=== PATIENT | female | born 1975 | race Caucasian/White ===

== ENCOUNTER 2017-06-27 16:44 | Emergency (ER) | payer OTHER ==
[~2017-06-27] VITALS: Ht 154.9 cm; Wt 48.0 kg
[~2017-06-27 16:44] MED LIST: DOXY150C OR; DOXY50 OR
[2017-06-27 16:49] VITALS: BP 142/81; PULSE 84; RESP 16; TEMP 99.1; O2SAT 99
[2017-06-27] MEDS ORDERED: IBUPROFEN 600 MG TAB PO ONE (17:45)
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
[2017-06-27] MEDS ORDERED: IBUP-232 PO (19:25)
[2017-06-27] MEDS ORDERED: ROBA750T PO (19:25)
== END 2017-06-27 19:30 | disposition home or self-care (01) ==
LOC: PHED 16:44 → PHEFT 19:30
DX: S16.1XXA Strain of muscle, fascia and tendon at neck level, initial encounter (principal); S39.012A Strain of muscle, fascia and tendon of lower back, initial encounter; S29.012A Strain of muscle and tendon of back wall of thorax, initial encounter; M79.601 Pain in right arm; V43.52XA Car driver injured in collision with other type car in traffic accident, initial encounter
CPT/HCPCS: 72072; 72100; 72125; 99284; L0150

== ENCOUNTER 2017-12-08 20:35 | Emergency (ER) | payer SELFPAY ==
[~2017-12-08 20:35] MED LIST changes: +IBUP-232 PO; +ROBA750T PO
[2017-12-08 20:45] VITALS: BP 137/77; PULSE 106; RESP 20; TEMP 99.3; O2SAT 97
[2017-12-08 23:35] VITALS: BP 118/77; PULSE 97; RESP 18; O2SAT 99
[2017-12-09] MEDS ORDERED: SODIUM CHLORIDE 0.9% FLUSH 10 ML FLUSH IV FLUSH PRN (01:00)
[2017-12-09] MEDS ORDERED: SODIUM CHLOR 0.9% 1000 ML INJ 1,000 ML IV ONE (01:00)
[2017-12-09] MEDS ORDERED: IBUPROFEN 400 MG TAB PO ONE (01:00)
[2017-12-09] MEDS ORDERED: ACETAMINOPHEN 500 MG CPLT PO ONE (01:00)
[2017-12-09 01:21] LABS: AUTOMATED NEUTROPHIL # 3.3 TH/MM3 (1.8-7.7); BASOPHIL % 0.3 % (0.0-2.0); EOSINOPHIL % 0.1 % (0.0-4.0); HEMATOCRIT 41.3 % (35.0-46.0); HEMOGLOBIN 13.5 GM/DL (11.6-15.3); LYMPH % 15.8 % (9.0-44.0); LYMPHOCYTE # 0.7 TH/MM3 (1.0-4.8); MEAN CELL VOLUME 92.2 FL (80.0-100.0); MEAN CORPUSCULAR HEMOGLOBIN 30.1 PG (27.0-34.0); MEAN CORPUSCULAR HGB CONC 32.7 % (32.0-36.0); MEAN PLATELET VOLUME 8.1 FL (7.0-11.0); MONO % 12.6 % (0.0-8.0); MONOCYTE # 0.6 TH/MM3 (0-0.9); NEUT % 71.2 % (16.0-70.0); PLATELET COUNT 244 TH/MM3 (150-450); RED BLOOD COUNT 4.48 MIL/MM3 (4.00-5.30); RED CELL DISTRIBUTION WIDTH 12.2 % (11.6-17.2); WHITE BLOOD COUNT 4.6 TH/MM3 (4.0-11.0)
[2017-12-09] MEDS ORDERED: ONDANSETRON HCL 4 MG/2 ML VIAL IV PUSH ONE (01:30)
[2017-12-09 01:33] VITALS: BP 115/74; PULSE 93; RESP 18; TEMP 98.9; O2SAT 99
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
[2017-12-09 01:39] LABS: CHLORIDE 104 MEQ/L (98-107); SODIUM (NA) 136 MEQ/L (136-145)
[2017-12-09 01:42] LABS: CALCIUM 8.4 MG/DL (8.5-10.1)
[2017-12-09 01:43] LABS: BICARBONATE 24.4 MEQ/L (21.0-32.0); BLOOD UREA NITROGEN 13 MG/DL (7-18); GLUCOSE,RANDOM 103 MG/DL (74-106); LIPASE 86 U/L (73-393)
[2017-12-09 01:44] LABS: BILIRUBIN, URINE NEG (NEG); BLOOD, URINE TRACE (NEG); GLUCOSE,URINE NEG (NEG); KETONE, URINE 80 OR GREATER mg/dL (NEG); NITRITE,URINE NEG (NEG); URINE LEUKOCYTE ESTERASE NEG (NEG)
[2017-12-09 01:46] LABS: ALT (GPT) 16 U/L (10-53); AST (GOT) 19 U/L (15-37); CREATININE 0.59 MG/DL (0.50-1.00); GLOMERULAR FILTRATION RATE 112 ML/MIN (>89)
[2017-12-09 01:47] LABS: TOTAL BILIRUBIN ADULT 0.3 MG/DL (0.2-1.0)
[2017-12-09 01:48] LABS: TOTAL PROTEIN 8.2 GM/DL (6.4-8.2)
[2017-12-09 01:49] LABS: ALKALINE PHOSPHATASE 47 U/L (45-117)
[2017-12-09 01:53] LABS: MUCUS URINE MOD /lpf (OCC); SQUAMOUS EPITHELIAL CELL URINE 0-5 /hpf (0-5); URINE COLOR YELLOW (YELLW/STRAW)
[2017-12-09 01:54] LABS: RBC, URINE 0-3 /hpf (0-3)
[2017-12-09 01:55] LABS: WBC, URINE 0-2 /hpf (0-5)
[2017-12-09] MEDS ORDERED: ZOFR4TAB3 SL (02:10)
--- NOTE | 2017-12-09 02:12 | PD ---
HPI Chief Complaint: GI Complaint Time Seen by Provider: 00:51 Travel History International Travel<30 days: No Contact w/Intl Traveler<30days: No Traveled to known affect area: No History of Present Illness HPI 42-year-old female presents to the emergency department for dizziness cough congestion fever chills myalgias arthralgias since Saturday evening. Symptoms are worsened throughout the day. Patient is also had multiple episodes of vomiting. Patient denies diarrhea. No report of hematemesis coffee-ground emesis melena or hematochezia. No dysuria frequency or urgency. Patient reports sinus had similar symptoms and is not better after taking azithromycin. Patient also complains of sore throat. Patient denies any chronic medical illnesses. PFSH Past Medical History Narrative Medical Migraines, tubal ligation; no tobacco use: Nursing notes reviewed Diminished Hearing: No Migraines: Yes Influenza Vaccination: No ?: Not LMP: 11/14/2017 Tubal Ligation: Yes Past Surgical History Gynecologic Surgery: Yes (Tubal ) Social History Alcohol Use: No Tobacco Use: No Substance Use: No Allergies-Medications (Allergen,Severity, Reaction): Coded Allergies: ciprofloxacin (Unverified Allergy, Severe, 12/08/17) oseltamivir (Verified Allergy, Unknown, Hallucinations, 12/08/17) Reported Meds & Prescriptions Reported Meds & Active Scripts Active Review of Systems Except as stated in HPI: all other systems reviewed are Neg Physical Exam Narrative GENERAL: Well-developed well-nourished female in no acute distress no respiratory distress SKIN: Warm and dry. HEAD: Normocephalic. EYES: No scleral icterus. No injection or drainage. NECK: Supple, trachea midline. No JVD or lymphadenopathy. CARDIOVASCULAR: Regular rate and rhythm without murmurs, gallops, or rubs. RESPIRATORY: Breath sounds equal bilaterally. No accessory muscle use. GASTROINTESTINAL: Abdomen soft, non-tender, nondistended. MUSCULOSKELETAL: No cyanosis, or edema. BACK: Nontender without obvious deformity. No CVA tenderness. Data Data Last Documented VS Vital Signs Date Time Temp Pulse Resp B/P (MAP) Pulse Ox O2 Delivery O2 Flow Rate FiO2 12/09/17 02:01 18 12/09/17 01:33 98.9 93 115/74 (88) 99 Room Air Orders Orders Complete Blood Count With Diff (12/09/17 00:51) Comprehensive Metabolic Panel (12/09/17 00:51) Lipase (12/09/17 00:51) Lactic Acid (12/09/17 00:51) Urinalysis - C+S If Indicated (12/09/17 00:51) Iv Access Insert/Monitor (12/09/17 00:51) Ecg Monitoring (12/09/17 00:51) Oximetry (12/09/17 00:51) Sodium Chloride 0.9% Flush (Ns Flush) (12/09/17 01:00) Chest, Single Ap (12/09/17 00:51) Ed Urine Pregnancytest Poc (12/09/17 00:51) Influenzae A/B Antigen (12/09/17 00:51) Group A Rapid Strep Screen (12/09/17 00:51) Sodium Chlor 0.9% 1000 Ml Inj (Ns 1000 M (12/09/17 01:00) Acetaminophen (Tylenol) (12/09/17 01:00) Ibuprofen (Motrin) (12/09/17 01:00) Ondansetron Inj (Zofran Inj) (12/09/17 01:30) Strep Culture (Group A) (12/09/17 01:00) Labs Laboratory Tests Test 12/09/17 00:40 12/09/17 01:05 12/09/17 01:30 White Blood Count 4.6 TH/MM3 Red Blood Count 4.48 MIL/MM3 Hemoglobin 13.5 GM/DL Hematocrit 41.3 % Mean Corpuscular Volume 92.2 FL Mean Corpuscular Hemoglobin 30.1 PG Mean Corpuscular Hemoglobin Concent 32.7 % Red Cell Distribution Width 12.2 % Platelet Count 244 TH/MM3 Mean Platelet Volume 8.1 FL Neutrophils (%) (Auto) 71.2 % Lymphocytes (%) (Auto) 15.8 % Monocytes (%) (Auto) 12.6 % Eosinophils (%) (Auto) 0.1 % Basophils (%) (Auto) 0.3 % Neutrophils # (Auto) 3.3 TH/MM3 Lymphocytes # (Auto) 0.7 TH/MM3 Monocytes # (Auto) 0.6 TH/MM3 Eosinophils # (Auto) 0.0 TH/MM3 Basophils # (Auto) 0.0 TH/MM3 CBC Comment DIFF FINAL Differential Comment Blood Urea Nitrogen 13 MG/DL Creatinine 0.59 MG/DL Random Glucose 103 MG/DL Total Protein 8.2 GM/DL Albumin 4.0 GM/DL Calcium Level 8.4 MG/DL Alkaline Phosphatase 47 U/L Aspartate Amino Transf (AST/SGOT) 19 U/L Alanine Aminotransferase (ALT/SGPT) 16 U/L Total Bilirubin 0.3 MG/DL Sodium Level 136 MEQ/L Potassium Level 3.9 MEQ/L Chloride Level 104 MEQ/L Carbon Dioxide Level 24.4 MEQ/L Anion Gap 8 MEQ/L Estimat Glomerular Filtration Rate 112 ML/MIN Lipase 86 U/L Lactic Acid Level 1.0 mmol/L Urine Color YELLOW Urine Turbidity SLIGHT Urine pH 6.0 Urine Specific [place] 1.029 Urine Protein NEG mg/dL Urine Glucose (UA) NEG mg/dL Urine Ketones 80 OR GREATER mg/dL Urine Occult Blood TRACE Urine Nitrite NEG Urine Bilirubin NEG Urine Leukocyte Esterase NEG Urine RBC 0-3 /hpf Urine WBC 0-2 /hpf Urine Squamous Epithelial Cells 0-5 /hpf Urine Mucus MOD /lpf Microscopic Urinalysis Comment CULT NOT INDICATED MDM Medical Decision Making Medical Screen Exam Complete: Yes Emergency Medical Condition: Yes Medical Record Reviewed: Yes Differential Diagnosis Viral syndrome, febrile illness, sepsis, influenza, UTI, pneumonia, bronchitis, gastroenteritis Narrative Course IV access obtained specimens collected and sent for resulting patient given bolus of normal saline Zofran and acetaminophen; specimens collected and sent for resulting Influenza antigen is negative, rapid strep antigen is negative, chest x-ray is normal, CBC is automated differential shows mild left shift normal total white cell count hemoglobin hematocrit and platelet count, chemistries are within normal limits, urinalysis is grossly within normal limits except for ketones, lactic acid is not elevated; chest x-ray shows no lobar infiltrate Patient has received a liter of normal saline Zofran acetaminophen findings of labs and diagnostics consistent with viral illness. Diagnosis Primary Impression: Acute viral syndrome Referrals: Primary Care Physician call for appointment Patient Instructions: General Instructions Departure Forms: Tests/Procedures, Work Release Med/Other Pt SpecificInfo: Prescription(s) given, No Change to Meds Scripts Ondansetron Odt (Zofran Odt) 4 Mg Tab 4 MG SL Q6HR Y for Nausea/Vomiting, #10 TAB 0 Refills Prov: Cecile Steiner MD 12/09/17 Disposition: DISCHARGE HOME Condition: Stable Cecile Steiner MD Dec 09, 2017 02:12
[2017-12-09 02:27] VITALS: BP 111/71; PULSE 88; RESP 18; O2SAT 100
[2017-12-09 02:40] VITALS: BP 114/75
== END 2017-12-09 03:12 | disposition home or self-care (01) ==
LOC: PHED 20:35
DX: B34.9 Viral infection, unspecified (principal)
CPT/HCPCS: 71045; 80053; 81001; 83605; 83690; 84703; 85025; 87081; 87804; 87880; 96361; 96374; 99284; J2405; J7030